=== PATIENT | female | born 2000 | race Caucasian/White ===

== ENCOUNTER 2023-12-27 12:35 | Outpatient (CLI) | payer BC, SELFPAY ==
[2023-12-27] VITALS (12 sets, daily range): BP systolic 112–121; BP diastolic 70–74; PULSE 101–129; O2SAT 97–100
--- NOTE | 2023-12-27 13:53 | US_ITS ---
Patient: ROXANNE SOSA Facility:?[facility] Patient ID:?[id number] Site Patient ID:?[id number]. Site :?[id number] Study:?US-OB Pelvis -12/27/2023 2:51:46 PM Ordering Physician:SURJIT TRUONG Final Report: INDICATION: contractions. Assess cervical length. COMPARISON: None available. TECHNIQUE: Transabdominal and endovaginal pelvic ultrasound were performed. FINDINGS: On the endovaginal exam the cervix measures 4.9 cm long (image 90). The cervix is closed. The fetus is in a cephalic position. cardiac activity is documented at 138 beats per minute. Deepest pocket of amniotic fluid is 4.0 cm, normal. Posterior placenta. No endovaginal color Doppler images. There are no grayscale findings to suggest Vasa previa. IMPRESSION: Long and closed cervix. The cervix measures 4.9 cm in length. Dictated by Bryan Donahue MD @ 12/27/2023 3:18:54 PM Signed by:?Bryan Donahue MD @12/27/2023 3:18:54 PM (Electronic Signature)
[2023-12-27 14:19] LABS: Appearance Urine Slightly Cloudy (Clear); Bilirubin Urine Negative (Negative); Blood Urine Trace-intact (Negative); Color Urine Yellow (Yellow); Glucose Urine Negative (Negative); Ketones Urine Negative (Negative); Leukocyte Esterase Urine Trace (Negative); Nitrite Urine Negative (Negative); Protein Urine Negative (Negative); Specific Gravity Urine 1.015 (1.000-1.030); Urobilinogen Urine 0.2 (0.2-1.0); pH Urine 7.5 (5.0-8.5)
[2023-12-27] MEDS: LACTATED RINGERS 1000 ML 1,000 ML 999 ML IV (14:45)
[2023-12-27 14:46] LABS: RBC Urine 0-2 (0-2); Squamous Epithelial Cell Urine Many (None-Few); WBC Urine 0-2 (0-5)
[2023-12-27 14:46] LABS: Trichomonas No Trichomonas Seen (None Seen); Yeast No Yeast Seen (None Seen)
[2023-12-27 14:47] LABS: Clue Cells No Clue Cells Seen (None Seen)
[2023-12-27 16:03] LABS: Fetal Fibronectin* Negative (Negative)
--- NOTE | 2023-12-27 16:08 | PC.OBNST ---
NST Note NST Note Start: 12/27/23 12:49 Freq: ONCE Status: Active Protocol: Document 12/27/23 15:30 LUL (Rec: 12/27/23 16:07 LUL [id number]) NST Note 4 Para (# of births) 2 EDC 03/08/24 Gestational Age In Weeks & Days 29 Weeks & 5 Days Patient Presented with Complaint(s) of Contractions/cramping Reactive Yes Appropriate for Gestational Age Yes RN Flores RN Date 12/27/23 Reactive Yes Appropriate for Gestational Age Yes JEFF Forman RN Date 12/27/23 OB NST charge Yes Complete NST Note via Write Note Yes The provider's electronic signature indicates the NST is reactive/appropriate for gestational age. *Note to provider: If an addendum is required, open the patient's chart and click on the note under the Nurse/Allied Health tab.
[2023-12-27] MEDS: BETAMETHASONE SOD PHOS/ACETATE 6 MG/ML ML 12 MG IM (16:51)
[2023-12-27] MEDS: LACTATED RINGERS 1000 ML IV (16:58)
--- NOTE | 2023-12-27 17:31 | US_ITS ---
Patient: ROXANNE SOSA Facility:?[facility] Patient ID:?[id number] Site Patient ID:?[id number]. Site :?[id number] Study:?US-OB Pelvis BPP-12/27/2023 6:39:51 PM Ordering Physician:VENUS Final Report: INDICATION: labor, assess status. TECHNIQUE: Ultrasound OB pelvis transabdominal. Real-time durant-scale imaging of the fetus was performed without stress testing. COMPARISON: OB ultrasound from the same day. FINDINGS: Sonographic imaging demonstrates a single living intrauterine gestation. Fetus demonstrates a regular cardiac rate of 147 beats per minute. Fetus has a cephalic orientation. Fundal and posterior placenta. Cavum septum pellucidum width measures 0.7 cm. Amniotic fluid volume single deepest pocket 5.4 cm 2/2. motion 2/2. tone 2/2. breathing movements 2/2. IMPRESSION: 1. Single viable intrauterine with a biophysical profile 8/8. 2. Cavum septum pellucidum width measures 0.7 cm. Dictated by Tristin Hollis MD @ 12/27/2023 6:58:16 PM Signed by:?Tristin Hollis MD @12/27/2023 6:58:16 PM (Electronic Signature)
--- NOTE | 2023-12-27 19:28 | P.OBLDTN_ITS ---
OB - Triage/Final Diagnosis Visit Information Time Seen by Provider: 17:15 Date Seen: 12/27/23 Date of evaluation: 12/27/23 Narrative: The patient is a 23 year old 3 para 2 at 29 weeks gestation who presents with contractions. Patient reports that last evening she had several loose stools. She has been having a bad week of IBS symptoms and had more constipation this week than typical and was using some laxatives to help. She went to bed and woke at midnight with contractions. These contractions became more intense in quality radiating into legs and back. She was triaged by clinic RNs and asked to come to labor and delivery. Patient states she has otherwise felt well today. She has no gushes like water broke, no bleeding. She has normal movement. No symptoms of preeclampsia. Does have some nausea when the cramping was more intense. At time of evaluation, her contractions are now less noticeable, and not as painful as period cramps. She is feeling better. Reason for evaluation: threatened labor Evaluation Cervical dilation (cm): 0 Laboratory results: Laboratory Tests 12/27/23 12/27/23 Range/Units 14:22 14:14 Urine Color Yellow (Yellow) Urine Appearance Slightly Cloudy A (Clear) Urine pH 7.5 (5.0-8.5) Ur Specific [place] 1.015 (1.000-1.030) Urine Protein Negative (Negative) Urine Glucose (UA) Negative (Negative) Urine Ketones Negative (Negative) Urine Blood Trace-intact A (Negative) Urine Nitrite Negative (Negative) Urine Bilirubin Negative (Negative) Urine Urobilinogen 0.2 (0.2-1.0) Ur Leukocyte Esterase Trace A (Negative) Urine RBC 0-2 (0-2) Urine WBC 0-2 (0-5) Ur Squamous Epith Cells Many A (None-Few) Urine Bacteria None (None) Vaginal Trichomonas No Trichomonas Seen (None Seen) Vaginal Yeast No Yeast Seen (None Seen) Vaginal Clue Cells No Clue Cells Seen (None Seen) Fibronectin Negative (Negative) Vital signs: Vital Signs - 24 hr 12/27/23 12:48 12/27/23 13:28 12/27/23 14:56 Pulse Rate 116 H Blood Pressure 112/74 Pulse Oximetry 97 98 100 12/27/23 15:01 12/27/23 15:06 12/27/23 15:11 Pulse Rate Blood Pressure Pulse Oximetry 100 100 100 12/27/23 15:16 12/27/23 15:21 12/27/23 15:26 Pulse Rate Blood Pressure Pulse Oximetry 100 100 100 12/27/23 15:31 12/27/23 15:36 12/27/23 17:00 Pulse Rate 120 H Blood Pressure 121/70 Pulse Oximetry 100 100 Fetus ( B) Heart Rate Baseline: 150 Carpenter Assistant Installer Variability: Moderate (11-25) Monitor Accelerations: Present Monitor Decelerations: Variable (one variable decel) Final Diagnosis (1) uterine contractions: Status: Acute Problem details: Patient presented with uterine contractions. Work up included cervical length of 3.6 cm, negative FFN, negative wet prep, negative US. She was given 2 liters IVF with spacing of contractions and decrease in intensity. FHT had 1 variable decel, so BPP was done which was 8/8. Patient was given betamethasone x 1. Given contractions had spaced, cervix closed and 3.6 cm, reassuring to discharge to home. Will follow up in clinic tomorrow and get 2nd dose of betamethasone at that time. Discussed reasons to return to care. Total Time Spent Total Time Spent: 30
== END 2023-12-27 18:30 | disposition home or self-care (01) ==
LOC: OB OUT 12:37 → OB 12:38
PROVIDERS: PCP Family Medicine; Visit Provider Family Medicine
DX: O60.00 Preterm labor without delivery, unspecified trimester (principal)
CPT/HCPCS: 59025; 76815; 76816; 76817; 76819; 81001; 81003; 84112; 87086; 87210; G0463; J0702; J7120

== ENCOUNTER 2024-03-14 22:39 | Outpatient (CLI) | payer BC, SELFPAY ==
[2024-03-14 22:55] VITALS: PULSE 109; O2SAT 98
[2024-03-14 22:57] VITALS: BP 114/75; PULSE 98
[2024-03-15] MEDS: MORPHINE 10 MG/ML inj IM (00:34)
[2024-03-15] MEDS: hydrOXYzine pamoate 25 MG CAPSULE 100 MG PO (00:35)
--- NOTE | 2024-03-15 00:50 | PC.OBNST ---
NST Note NST Note Start: 03/14/24 22:45 Freq: ONCE Status: Active Protocol: Document 03/15/24 00:50 MILENA (Rec: 03/15/24 00:50 MILENA [id number]) NST Note 3 Para (# of births) 2 EDC 03/08/24 Gestational Age In Weeks & Days 41 Weeks & 0 Days Patient Presented with Complaint(s) of Contractions/cramping Reactive Yes RN Latosha Swete RN Date 03/15/24 Reactive Yes RN Yuan Ball RN Date 03/15/24 OB NST charge Yes Complete NST Note via Write Note Yes The provider's electronic signature indicates the NST is reactive/appropriate for gestational age. *Note to provider: If an addendum is required, open the patient's chart and click on the note under the Nurse/Allied Health tab.
--- NOTE | 2024-04-05 12:51 | PC.OBNST ---
NST Note NST Note Start: 03/14/24 22:45 Freq: ONCE Status: Discharge Protocol: Document 03/15/24 00:50 MILENA (Rec: 03/15/24 00:50 MILENA [id number]) NST Note 3 Para (# of births) 2 EDC 03/08/24 Gestational Age In Weeks & Days 41 Weeks & 0 Days Patient Presented with Complaint(s) of Contractions/cramping Reactive Yes RN Latosha Sweet RN Date 03/15/24 Reactive Yes RN Yuan Ball RN Date 03/15/24 OB NST charge Yes Complete NST Note via Write Note Yes The provider's electronic signature indicates the NST is reactive/appropriate for gestational age. *Note to provider: If an addendum is required, open the patient's chart and click on the note under the Nurse/Allied Health tab.
--- NOTE | 2024-06-06 08:17 | W.PM.NSTNOTE ---
NST Note NST Note NST Note: NST Note NST Note Start: 03/14/24 22:45 Freq: ONCE Status: Discharge Protocol: Document 03/15/24 00:50 MILENA (Rec: 03/15/24 00:50 MILENA [id number]) NST Note 3 Para (# of births) 2 EDC 03/08/24 Gestational Age In Weeks & Days 41 Weeks & 0 Days Patient Presented with Complaint(s) of Contractions/cramping Reactive Yes RN Latosha Sweet, JEFF Date 03/15/24 Reactive Yes JEFF Ball RN Date 03/15/24 OB NST charge Yes Complete NST Note via Write Note Yes Addendum: NST reviewed from 03/14/2024. Reactive. Moderate variability. 125 baseline. + accels, - decels, contraction every 3-8 min.
== END 2024-03-15 00:42 | disposition home or self-care (01) ==
LOC: OB OUT 22:41 → OB 22:42
PROVIDERS: PCP Family Medicine; Visit Provider Student in an Organized Health Care Education/Training Program
DX: O47.1 False labor at or after 37 completed weeks of gestation (principal); Z3A.41 41 weeks gestation of pregnancy
CPT/HCPCS: 59025; G0463; A9270; J2270

== ENCOUNTER 2024-03-15 14:09 | Inpatient (IN) | payer BC, SELFPAY ==
[2024-03-15] VITALS (64 sets, daily range): BP systolic 99–121; BP diastolic 57–82; PULSE 82–125; RESP 16; TEMP 37.1; O2SAT 90–100; BMI 33.1
[2024-03-15] MEDS: LACTATED RINGERS 1000 ML 1,000 ML 995 ML IV (14:20)
[2024-03-15] MEDS: AMPICILLIN 2 GM in 0.9 % SODIUM CHLORIDE Mini-bag 100 ML IVPB (14:32)
--- NOTE | 2024-03-15 14:48 | P.OBHP_ITS ---
OB - H&P: HPI Labor/Induction History of Present Illness Date Seen: 03/15/24 Chief Complaint: The patient is a 24 year old 3 para 3 at 41 weeks gestation by first trimester US, who presents with painful regular contractions starting around noon. Chief complaint: Maternity : 4 Para: 2 Narrative: Claudia Manley is a 24 year old at 41 weeks by 1st trimester US here for active labor. She was having contractions overnight, however she did not have cervical change and was discharged to home. Around noon today, her contraction intensity increased and she presented to labor and delivery at /-1. She is uncomfortable with contractions, hoping for an intrathecal for pain management. History of Present Dating criteria: based on LMP care: good care Ultrasounds: normal 1st trimester US and normal mid trimester US Medical complications: none Labs Blood type: A (+) positive Rubella: immune RPR/VDLR: nonreactive GBS status: positive HBsAG: negative Meds Home Medications and Allergies Home Medications ?Medication ?Instructions ?Recorded ?Confirmed ?Type PNV-iron 29 mg-folic acid 1 1 pkg PO DAILY 12/27/23 03/14/24 History ho-lqcqi-8-dha 200 mg oral combo pack Allergies Allergy/AdvReac Type Severity Reaction Status Date / Time bandaid adhesiv AdvReac Mild Rash Uncoded 03/13/23 18:25 OB - H&P: Exam Physical Exam: Vital signs: Pulse BP Pulse Ox 104 H 119/78 100 03/15/24 13:49 03/15/24 13:49 03/15/24 14:43 Constitutional: Constitutional: no acute distress Routine HEENT Exam: Head: Present atraumatic Eye: Present EOMI and PERRL ENT: Present mucous membranes moist Routine Neck Exam: Neck: Present full ROM Routine Respiratory Exam: Respiratory: Present CTA bilaterally Routine Cardiovascular Exam: Cardiovascular: RRR Detailed Labor and Delivery Exam: Patient Gravid: Yes Dilation (cm): 7 Effacement (%): 75 Cervix position: anterior Consistency: soft Contraction frequency (min): 4 Contraction intensity: Strong/Firm Fetus (Single): Station: -1 Amniotic Membrane Status: intact Heart Rate Baseline: 150 Monitor Accelerations: Present Monitor Decelerations: Variable Program Director/Traffic Director Variability: Moderate (6-25) Routine Extremities Exam: Extremities: Present full ROM Routine Skin Exam: Present intact Routine Neurological Exam: Present alert, oriented X3 and CN II-XII intact Routine Psychiatric Exam: Present normal affect and normal thought process OB - Problem Based A/P Additional Plan (1) Active labor: Status: Acute Plan Ampicillin for +GBS ITN for labor analgesia if able to be done prior to delivery Anticipate Delivery/Labor/Induction Plan Plan: expectant management
[2024-03-15] MEDS: fentaNYL 100 MCG/2 ML inj 25 MCG INTRATHECA (15:10)
--- NOTE | 2024-03-15 15:28 | PM.ANBPRCMDA ---
PFSH PFSH Social History Smoking Status: Never smoker Do you use any of these nicotine containing products: None Second hand tobacco smoke exposure: No How often do you have a drink containing alcohol: never AUDIT-C Alcohol total score: 0 Non-prescribed substance use: denies use service: No Meds Home Medications and Allergies Home Medications ?Medication ?Instructions ?Recorded ?Confirmed ?Type PNV-iron 29 mg-folic acid 1 1 pkg PO DAILY 12/27/23 03/14/24 History oc-lgwjy-7-dha 200 mg oral combo pack Allergies Allergy/AdvReac Type Severity Reaction Status Date / Time bandaid adhesiv AdvReac Mild Rash Uncoded 03/13/23 18:25 Results Vital Signs Vital Signs: Last Vital Signs Pulse 100 03/15/24 15:26 BP 107/72 03/15/24 15:26 Pulse Ox 98 03/15/24 15:23 Anesthesia Procedures - MDA Intrathecal Patient Location: OB Start Time: 14:55 Stop Time: 15:20 Start Date: 03/15/24 Stop Date: 03/15/24 Reason for Block: primary anesthetic Patient Position: sitting Performed By: Francisco Stein Preanesthetic Checklist: IV checked, risks and benefits discussed, surgical consent, monitors and equipment checked, pre-op evaluation, timeout performed and anesthesia consent Prep: chlorhexidine gluconate Monitoring: blood pressure monitoring, awake overnight monitor, continuous pulse oximetry and heart rate Approach: midline Vertebral Space: lumbar (1-5) Needle Type: Pencan Injection Technique: single-shot (0.5 mL 0.75% bupivacaine with 25 mcg fentanyl injected) Needle gauge: 25
[2024-03-15] MEDS: LACTATED RINGERS 1000 ML 1,000 ML 125 ML IV (15:30)
[2024-03-15] MEDS: OXYTOCIN 30 unit/500 ML in NS 30 UNIT/500 ML BAG 300 UNIT IVPB (17:16)
--- NOTE | 2024-03-15 17:25 | W.PM.VAGDEL1 ---
Procedure Delivery date: 03/15/24 Procedure Done: Global Delivery monitor: external FHT and external uterine Route of delivery: Laceration description: None Estimated blood loss (mL): 50 Anesthesia type: Epidural (intrathecal) Disposition: floor Narrative: The patient is a 24 year-old admitted on 03/15/2024 at 41 Weeks, 0 Days gestation for active labor.? Cervical exam on admission was 7 cm/75 % effaced/-1 station with membranes intact in vertex presentation.? Contractions were every 3-5 minutes.? heart rate demonstrated baseline 150 bpm with moderate variability, + accelerations, - decelerations; a category 1 tracing.? SROM occurred at 1636 with clear fluid. ? Labor Analgesia:? ITN ? Pitocin:? post delivery ? Labor onset:? 1200 ? Complete:? 1643 ? Pushing:? 1635 (with a rim and bulging membranes) ? heart tones during second stage were category 2. ? At 1713 a viable male delivered in vertex OA presentation over intact perineum via spontaneous vaginal delivery.? Infant was placed on maternal abdomen.? Cord was clamped and cut after a 30-60 second delay.? Nose and mouth were bulb suctioned.? Infant weight pending.? 8 at 1 minute and 9 at 5 minutes.? Shoulder dystocia: no.? Nuchal cord: yes x3. ? Placenta delivered spontaneously and complete at 1716 with a 3 vessel cord. ? Mother and infant were stable after delivery. ? Lacerations:? none. ? Blood loss: 50 mL. Blood loss measurement type: QBL ? Sponge and needles counts are correct. [place] Infant Infant Gender: Male presentation: vertex Placental Delivery Description: Spontaneous Cord Description: 3 Vessels and Around Body x3
[2024-03-16] MEDS: IBUPROFEN 600 MG TABLET PO ×4 (00:02→23:47)
[2024-03-16 00:15] VITALS: BP 111/70; PULSE 78; RESP 16; TEMP 36.9; O2SAT 99
[2024-03-16 04:20] VITALS: BP 105/70; PULSE 90; RESP 16; TEMP 36.4; O2SAT 96
[2024-03-16 07:45] LABS: Hemoglobin* 11.6 gm/dL (12.0-16.0)
[2024-03-16 09:12] VITALS: BP 110/69; PULSE 67; RESP 16; O2SAT 96
[2024-03-16] MEDS: DOCUSATE SODIUM 100 MG CAPSULE PO (09:18)
[2024-03-16 12:30] VITALS: BP 106/70; PULSE 89; RESP 18; TEMP 36.4; O2SAT 97
--- NOTE | 2024-03-16 14:26 | PM.OBPNVD1 ---
OB - PN:Subj Subjective Date Seen: 03/16/24 Interval history: Claudia is pp day #1 seen in follow up. She reports she is doing well. Reports bleeding is appropriate, some cramping, mostly with nursing. is going well. Patient comments OB post-: no complaints, pain well controlled, tolerating diet and flatus present infant status: and doing well feeding status: exclusively OB - PN: Obj Exam Physical Exam: Vital signs: Temp Pulse Resp BP Pulse Ox O2 Del Method 97.6 F 89 18 106/70 97 Room Air 03/16/24 12:30 03/16/24 12:30 03/16/24 12:30 03/16/24 12:30 03/16/24 12:30 03/16/24 12:30 Constitutional: Constitutional: no acute distress Routine Neck Exam: Neck: Present full ROM Routine Abdominal Exam: Abdominal: Present soft Fundus: Present firm Comments: at umbilicus OB - PN: Obj Data Labs Labs: Laboratory Results - last 24 hr 03/16/24 07:25 Hgb 11.6 L OB - PN: A/P Delivery Assessment and Plan (1) Vaginal delivery: Status: Acute Plan day: 1 Plan: routine care Comments: discharge in the morning due to +GBS without adequate antibiotics.
[2024-03-16 16:50] VITALS: BP 108/71; PULSE 97; RESP 16; TEMP 37.2; O2SAT 96
[2024-03-16] MEDS: ACETAMINOPHEN 500 MG TABLET 1000 MG PO (21:54)
[2024-03-16 23:40] VITALS: BP 112/78; PULSE 80; RESP 16; TEMP 36.6; O2SAT 95
--- NOTE | 2024-03-17 08:06 | PM.OBDSVD1 ---
DS: Providers Provider Date Seen: 03/17/24 Date of admission: 03/15/24 14:09 Primary care physician: Mary Garcia DO Admitting Clinician: Ekaterina Oliveira MD Attending Physician on discharge: Ekaterina Oliveira MD Date of Discharge: 03/17/24 DS: Diagnosis Discharge Diagnosis (1) Status post normal vaginal delivery: Status: Acute Exam Narrative: Exam Narrative: Gen: alert, pleasant, NAD Resp: breathing comfortably on room air; CTA b/l Heart: RRR, no murmurs Abd: fundus firm, nontender MSK: no LE edema Const: Vital Signs, click to edit/add: Vital Signs - 24 hr 03/16/24 09:12 03/16/24 12:30 03/16/24 16:50 Temperature 97.6 F 99.0 F Pulse Rate [Right Pulse Oximeter] 67 89 97 Respiratory Rate 16 18 16 Blood Pressure [Le ft Arm] 110/69 106/70 108/71 Pulse Oximetry 96 97 96 Oxygen Delivery Me thod Room Air Room Air 03/16/24 23:40 Temperature 97.8 F Pulse Rate [Right Pulse Oximeter] 80 Respiratory Rate 16 Blood Pressure [Le ft Arm] 112/78 Pulse Oximetry 95 Oxygen Delivery Me thod Room Air OB - DS: Summary Hospital Course Hospital Course: The patient is a 24 year old G 4 P 3 at 41 weeks gestation that was admitted to the Center on 03/15/24 for active labor. She had an uncomplicated vaginal delivery. She delivered a viable male . She is breast feeding. the patient has done well. Peripartum Data Infant delivery method: Vaginal Laceration description: None complications: none [place] Infant Gender: Male Infant Discharge Plan: Home Time Spent with Patient Time attestation: Total time spent providing and/or coordinating discharge services: Time spent: Less than 30 minutes Discharge Plan Discharge Disposition: Home, Self-Care Date of Admission: 03/15/24 14:09 Primary Care Provider: Mary Garcia Condition: Stable Anticipated Discharge Date/Time: 03/17/24 08:38 Discharge Medications: New ibuprofen 600 mg Tablet 600 mg PO Q6H PRNQty: 20 0RF Continued PNV cmb 82-fmov-JR-omega-3-dha 29 mg iron- 1 mg-200 mg combo pack 1 pkg PO DAILY Discharge Orders: Discharge Order (Routine); Ordered 03/17/24 Ordered By: Carmencita Gimenez Patient Education: Vaginal Delivery (DC), OB Vaginal/Bottle Feeding Follow Up Appointments: Mary Garcia DO [Primary Care Provider] - Forms: [facility] Info Instructions Discharge Comments: plan to have 6 week post- follow up with OB provider or sooner if needed
[2024-03-17 09:30] VITALS: BP 107/71; PULSE 93; RESP 16; TEMP 37.1; O2SAT 97
[2024-03-17] MEDS: IBUPROFEN 600 MG TABLET PO (09:34)
== END 2024-03-17 10:40 | disposition home or self-care (01) | DRG 560 ==
LOC: OB OUT 14:09 → OB 14:09
PROVIDERS: Admitting Provider Family Medicine; PCP Family Medicine; Visit Provider Family Medicine
DX: O48.0 Post-term pregnancy (principal); O99.824 Streptococcus B carrier state complicating childbirth; Z3A.41 41 weeks gestation of pregnancy; Z37.0 Single live birth
CPT/HCPCS: 01967; 36415; 85018; 86592; A9270; J0290; J3010; J7120